=== PATIENT | female | born 1965 | race Caucasian/White ===

== ENCOUNTER 2018-09-27 10:55 | Emergency (ER) | payer SELFPAY ==
[~2018-09-27] VITALS: Ht 162.5 cm; Wt 81.6 kg
[~2018-09-27 10:55] MED LIST: ATIVAN0.5 MG PO; VICODIN 5/500 505 MG PO; ZOVIRAX800 MG PO
[2018-09-27] MEDS ORDERED: ZYRTEC10 MG PO (12:37)
[2018-09-27] MEDS ORDERED: AMOXICILLIN500 M2 PO (12:37)
[2018-09-27] MEDS ORDERED: FLONASE ALLERG9.9 ML NAS (12:37)
== END 2018-09-27 12:45 | disposition home or self-care (01) ==
LOC: ED 10:55
DX: H66.91 Otitis media, unspecified, right ear (principal); J02.9 Acute pharyngitis, unspecified; F17.200 Nicotine dependence, unspecified, uncomplicated

== ENCOUNTER 2021-09-26 16:15 | Emergency (ER) | payer SELFPAY ==
[~2021-09-26] VITALS: Ht 160 cm; Wt 95.3 kg
[~2021-09-26 16:15] MED LIST changes: +AMOXICILLIN500 M2 PO; +FLONASE ALLERG9.9 ML NAS; +ZYRTEC10 MG PO
[2021-09-26 16:42] LABS: BASO # 0.1 10*3/uL (0.0-0.1); BASO % 0.4 % (0.0-1.0); EOS # 0.1 10*3/uL (0.0-0.4); HEMATOCRIT 45.5 % (37.0-47.0); LYMPH # 1.9 10*3/uL (1.3-4.4); LYMPH % 16.5 % (27.0-41.0); MEAN CELL VOLUME 93.2 fl (81.0-99.0); MEAN CORPUSCULAR HGB 31.8 pg (27.0-31.0); MEAN CORPUSCULAR HGB CONC 34.1 g/dl (33.0-37.0); MEAN PLATELET VOLUME 10.1 fl (9.6-12.3); MONO # 0.6 10*3/uL (0.1-1.0); MONO % 4.9 % (3.0-9.0); NEUT # 8.9 10*3/uL (2.3-7.9); NEUT % 76.9 % (47.0-73.0); PLATELET COUNT AUTOMATED 227 10*3/uL (130-400); RED BLOOD COUNT 4.88 10*6/uL (4.10-5.10); RED CELL DISTRI WIDTH 12.9 % (0-14.5); WHITE BLOOD COUNT 11.5 10*3/uL (4.8-10.8)
[2021-09-26 16:59] LABS: ACT PARTIAL THROMBO TIME 23.8 SECONDS (20.0-32.1); CREATININE 1.13 mg/dL (0.55-1.02); INTERNATIONAL NORM RATIO 0.9 (2.0-3.5); POTASSIUM 4.3 mmol/L (3.5-5.1); TOTAL PROTEIN 7.5 gm/dL (6.4-8.2)
[2021-09-26 17:07] LABS: THYROID STIM HORMONE (HS) 0.411 uIU/ml (0.358-4.75)
== END 2021-09-26 18:56 | disposition left against medical advice (07) ==
LOC: ED 16:15
PROVIDERS: Emergency Medicine
DX: R07.89 Other chest pain (principal); R42 Dizziness and giddiness; R61 Generalized hyperhidrosis; Z79.899 Other long term (current) drug therapy

== ENCOUNTER 2021-11-28 14:57 | Emergency (ER) | payer SELFPAY ==
[~2021-11-28] VITALS: Ht 162.5 cm; Wt 77.1 kg
[2021-11-28] MEDS ORDERED: HYDROCODONE-AC1 EACH PO ×2 (16:15→16:17)
== END 2021-11-28 16:19 | disposition home or self-care (01) ==
LOC: ED 14:57
DX: S42.025A Nondisplaced fracture of shaft of left clavicle, initial encounter for closed fracture (principal); Z90.49 Acquired absence of other specified parts of digestive tract; W18.39XA Other fall on same level, initial encounter; Y93.89 Activity, other specified; Y92.89 Other specified places as the place of occurrence of the external cause; Y99.8 Other external cause status